=== PATIENT | male | born 1970 | race Caucasian/White ===

== ENCOUNTER 2016-07-21 16:45 | Emergency (ER) | payer OTHER ==
[~2016-07-21] VITALS: Ht 172.7 cm; Wt 113.4 kg
[~2016-07-21 16:45] MED LIST: ACETAMINOPHEN325 M1 PO; DIABETA 2.5MG2.5 MG PO; GLUCOPHAGE500 MG PO; KEFLEX500 MG PO; LISINOPRIL20 MG PO; NOHOMEMEDICATIONS
[2016-07-21] MEDS ORDERED: NORCO 5-325 TA1 EACH PO (19:55)
== END 2016-07-21 21:39 | disposition home or self-care (01) ==
LOC: ER 16:45
DX: S92.002A Unspecified fracture of left calcaneus, initial encounter for closed fracture (principal); S92.145A Nondisplaced dome fracture of left talus, initial encounter for closed fracture; E11.9 Type 2 diabetes mellitus without complications; I10 Essential (primary) hypertension; W11.XXXA Fall on and from ladder, initial encounter; Y93.89 Activity, other specified; Y92.89 Other specified places as the place of occurrence of the external cause; Y99.9 Unspecified external cause status

== ENCOUNTER 2016-08-02 05:28 | Observation (INO) | payer OTHER ==
[~2016-08-02] VITALS: Ht 172.7 cm; Wt 113.4 kg
--- NOTE | ~2016-08-02 | EKG ---
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
--- NOTE | ~2016-08-02 | O ---
[facility] [place] [address] OPERATIVE REPORT Name: FARHANMANNY Estelle Room #: 409-P [facility]#: [id number] Admission: 08/02/16 Attend Phys: Gonsalo Arvizu MD Discharge: Date of : 66 Report #: [id number] THIS REPORT FOR: //name// CC: Rufino Arvizu DATE OF SERVICE: 08/02/2016 PREOPERATIVE DIAGNOSES: 1. Left talus fracture. 2. Left calcaneus fracture. POSTOPERATIVE DIAGNOSES: 1. Left talus fracture. 2. Left calcaneus fracture. PROCEDURE: Left talus and calcaneus open reduction internal fixation. SURGEON: Gonsalo Arvizu MD KAITARA TARAKA: RADAMES Palacios, critical for positioning and the safe performance of the procedure. ANESTHESIA: General. ESTIMATED BLOOD LOSS: Minimal. DRAINS: No drains. TOURNIQUET TIME: 45 minutes. DESCRIPTION OF PROCEDURE: The patient brought to the operating room where he was placed under general anesthesia. Once under adequate general anesthesia, his left knee was placed into the lateral decubitus position on the operative table. His left lower extremity was prepped and draped in sterile manner. The extremity was elevated, exsanguinated, tourniquet placed to 350 mmHg. A lateral incision over the sinus tarsi was then made approximately 4 cm in length. This was dissected down through the soft tissue to the fat pad in the extensor digitorum brevis. These were then elevated off the calcaneus and the sinus tarsi and the soft tissue was removed from the sinus tarsi and hematoma was evacuated with abundant irrigation. The calcaneal fracture site was then identified. This was a comminuted fracture. Area was subsequently reduced and fixed into place with a lateral 2.7 calcaneal plate from the Synthes set. Multiple fixation screws were placed under fluoroscopic guidance. Excellent fixation and alignment was achieved in this manner. The talar fracture was identified and subsequently reduced and fixed into place with a single 4.[address] [address] OPERATIVE REPORT Name: MANNY REAL Room #: 409-P [facility] M..#: [id number] Admission: 08/02/16 Attend Phys: Gonsalo Arvizu MD Discharge: Date of : 66 Report #: [id number] cannulated screw placed under fluoroscopic guidance as well. Once achieved, excellent fixation and alignment was achieved across each side of the subtalar joint. The wounds were irrigated copiously and closed with 2-0 Vicryl in the deep and subcutaneous tissues and navi were used for the skin. Wounds were dressed with Xeroform, 4 x 4s, and sterile soft compressive dressing was placed along with a posterior slab splint. Tourniquet was let down approximately one hour. Toes were pink and warm with good capillary refill. There were no complications from the procedure. The patient tolerated the procedure well and went to the recovery room without incident. <ELECTRONICALLY SIGNED> By: Gonsalo Arvizu MD 08/03/16 1102 1015 [id number] Gonsalo Arvizu MD /nt
--- NOTE | ~2016-08-02 | H ---
[facility] [address] [place] [address] HISTORY AND PHYSICAL Name: MANNY REAL Room #: 409-P [facility] James M.R.#: [id number] Admission: 08/02/16 Attend Phys: Gonsalo Arvizu MD Discharge: 08/03/16 Date of : 66 Report #: [id number] THIS REPORT FOR: //name// For History and Physical, please see office documentation/handwritten note in the patient's medical record. By: 1514 Gonsalo Arvizu MD /
[~2016-08-02 05:28] MED LIST changes: +NORCO 5-325 TA1 EACH PO
[2016-08-02 08:31] VITALS: BP 105/66
[2016-08-02 11:20] VITALS: BP 113/72
[2016-08-02 12:30] VITALS: BP 116/77
[2016-08-02 13:30] VITALS: BP 113/67
[2016-08-02 15:30] VITALS: BP 119/70
[2016-08-02 19:45] VITALS: BP 114/69
[2016-08-03 00:32] VITALS: BP 114/69
[2016-08-03 04:35] VITALS: BP 111/66
[2016-08-03 06:24] LABS: POTASSIUM 4.5 mmol/L (3.5-5.1)
[2016-08-03 06:45] LABS: HEMATOCRIT 42.1 % (42.0-52.0); HEMOGLOBIN 13.9 gm/dL (14.0-18.0)
[2016-08-03 08:00] VITALS: BP 110/70
[2016-08-03] MEDS ORDERED: PERCOCET 7.5-31 EACH PO (10:51)
[2016-08-03] MEDS ORDERED: ASPIRIN325 PO (10:52)
[2016-08-03 12:46] VITALS: BP 110/70
== END 2016-08-03 13:11 | disposition home or self-care (01) ==
LOC: TBA 05:28 → OR 05:28 → TBA 05:29 → OR 08:23 → 4N 11:11 → OR 13:52 → 4N 08-03 13:11
PROVIDERS: Orthopaedic Surgery Foot and Ankle Surgery
DX: S92.125A Nondisplaced fracture of body of left talus, initial encounter for closed fracture (principal); S92.015A Nondisplaced fracture of body of left calcaneus, initial encounter for closed fracture; E11.9 Type 2 diabetes mellitus without complications; W11.XXXA Fall on and from ladder, initial encounter; Y93.89 Activity, other specified; Y92.89 Other specified places as the place of occurrence of the external cause; Y99.0 Civilian activity done for income or pay
CPT/HCPCS: 50010; 50101; 50386; 51122; 51412; 55430; 56524; 56525; 57091; 62110; 62900; 70005